=== PATIENT | male | born 1960 | race Two or more races ===

== ENCOUNTER 2018-12-11 07:56 | Day surgery (SDC) | payer OTHER ==
[2018-12-11] MEDS ORDERED: ANESTHESIA TRAY IN PYXIS 1 EA TRAY MC ONE (10:02)
[2018-12-11] MEDS ORDERED: BUPIVACAINE MPF 0.5% W/EPI INJ 30 ML VIAL ONE (10:02)
[2018-12-11] MEDS ORDERED: EPINEPHRINE (1:1000) 1 MG/ML AMPUL ONE (10:02)
[2018-12-11] MEDS ORDERED: MORPHINE SULFATE/PF 10 MG/10ML (1MG/ML) AMPUL ONE (10:02)
[2018-12-11] MEDS ORDERED: BUPIVACAINE 0.5 % PF 150 MG/30 ML VIAL ONE (10:46)
[2018-12-11] MEDS ORDERED: MIDAZOLAM HCL 2 MG/2ML VIAL ONE (11:45)
[2018-12-11] MEDS ORDERED: ROCURONIUM BROMIDE 50 MG/5 ML ONE (11:45)
== END 2018-12-11 15:10 | disposition home or self-care (01) ==
LOC: DS 07:56
PROVIDERS: ATTEND Orthopaedic Surgery
DX: M75.41 Impingement syndrome of right shoulder (principal); E11.9 Type 2 diabetes mellitus without complications; E78.5 Hyperlipidemia, unspecified; Z79.899 Other long term (current) drug therapy; M65.811 Other synovitis and tenosynovitis, right shoulder
CPT/HCPCS: 23120; 23130; 23412; 29823; 82962; A4217; J0171; J0690; J1100; J1885; J2250; J2274; J2405; J2704; J2710; J3490 ×5